=== PATIENT | female | born 1980 | race Caucasian/White ===

== ENCOUNTER 2020-02-10 21:39 | Emergency (ER) | payer OTHER ==
[~2020-02-10] VITALS: Ht 162.6 cm; Wt 87.0 kg
[2020-02-10 21:47] VITALS: BP 96/51
[2020-02-10] MEDS ORDERED: ONDANSETRON ODT 4 MG ONE (22:10)
[2020-02-10] MEDS ORDERED: HYDROcodone/APAP 5/325 TABLET ONE (22:10)
[2020-02-10] MEDS ORDERED: ONDANSETRON ODT 4 MG PO ONE (22:30)
[2020-02-10] MEDS ORDERED: HYDROcodone/APAP 5/325 TABLET PO ONE (22:30)
== END 2020-02-10 23:46 | disposition home or self-care (01) ==
LOC: ED 23:20
DX: S92.112A Displaced fracture of neck of left talus, initial encounter for closed fracture (principal); S93.402A Sprain of unspecified ligament of left ankle, initial encounter; X50.0XXA Overexertion from strenuous movement or load, initial encounter; Y92.009 Unspecified place in unspecified non-institutional (private) residence as the place of occurrence of the external cause; Y93.89 Activity, other specified; Y99.8 Other external cause status
CPT/HCPCS: 29515; 99284; Q0162